=== PATIENT | female | born 1955 ===

== ENCOUNTER 2022-02-21 11:10 | Outpatient (CLI) | payer MEDICARE, SELFPAY ==
--- NOTE | ~2022-02-21 | XR_ITS ---
XR lumbar spine 2-3V 02/21/2022 11:31 Indication: Lumbar radiculopathy. Procedure: 3 views lumbar spine Comparison: No prior studies for comparison. Findings: There is disc narrowing at all lumbar levels. No fracture or traumatic malalignment. No roly dence for spondylolisthesis. There is advanced multilevel facet hypertrophy. Normal lumbar lordosis. Mild dextrocurvature of the lumbar spine. Sacral foramen are symmetric. Impression: 1: Moderate-severe lumbar spondylosis. Reviewed, dictated and finalized at location A. Impression: 1: Moderate-severe lumbar spondylosis.
== END 2022-02-21 11:11 | disposition home or self-care (01) ==
LOC: CHSIMG 11:17
PROVIDERS: PCP Physician Assistant; Visit Provider Physician Assistant
DX: M54.16 Radiculopathy, lumbar region (principal)
CPT/HCPCS: 72100

== ENCOUNTER 2022-03-12 09:46 | Outpatient (CLI) | payer MEDICARE, SELFPAY ==
--- NOTE | ~2022-03-12 | MR_ITS ---
EXAMINATION: MR lumbar spine wo con DATE: 03/12/2022 11:16 INDICATION: Lumbar spondylosis. Low back pain. TECHNIQUE: Magnetic resonance imaging (MRI) of the lumbar spine was performed without intravenous con trast. Sequences included sagittal T2-weighted FSE, sagittal T2-weighted FS FSE, sagittal T1-weighted FSE, and axial T2-weighted FSE. COMPARISON: Lumbar spine radiographs 06/24/2022 FINDINGS: There is 6 degrees dextrocurvature of lumbar spine. There is 3 mm retrolisthesis of L1 on L 2 and L2 on L3. There are Schmorl's nodes at most levels. There is moderately decreased disc height a t L1-L2 and L2-L3, mildly decreased disc height at L3-L4, and severely decreased disc height at L4-L5 with endplate remodeling. The distal spinal cord signal intensity is normal. The conus medullaris is at L1-L2. The following disc levels are specifically discussed: L1-L2: The disc is bulging. There is moderate bilateral facet joint osteoarthritis. There is mild suresh ateral neural foraminal stenosis. There is mild central canal stenosis. L2-L3: The disc is bulging and has an annular fissure. There is mild bilateral facet joint osteoarthr itis. There is mild bilateral neural foraminal stenosis. There is mild central canal stenosis. L3-L4: The disc is bulging and has an annular fissure. There is severe bilateral facet joint osteoart hritis. There is mild bilateral neural foraminal stenosis. There is mild central canal stenosis. L4-L5: The disc is bulging and has an annular fissure. There is moderate bilateral facet joint osteoa rthritis. There is moderate right and mild left neural foraminal stenosis. There is mild central anuj l stenosis. L5-S1: The disc is mildly bulging. There is severe bilateral facet joint osteoarthritis. There is mil d bilateral neural foraminal stenosis. There is mild central canal stenosis. IMPRESSION: 1. Severe lumbar spondylosis. Reviewed, dictated and finalized at location A.
== END 2022-03-12 09:47 | disposition home or self-care (01) ==
LOC: CHSIMG 09:47
PROVIDERS: PCP Physician Assistant; Visit Provider Physician Assistant
DX: M47.896 Other spondylosis, lumbar region (principal)
CPT/HCPCS: 72148

== ENCOUNTER 2023-06-17 09:33 | Outpatient (CLI) | payer MEDICARE, SELFPAY ==
[2023-06-17 10:10] LABS: Alanine Aminotransferase 104 U/L (14-59); Albumin Level 3.3 g/dL (3.4-5.0); Alkaline Phosphatase 131 U/L (46-116); Anion Gap 11 mmol/L (8-16); Aspartate Amino Transferase 31 U/L (15-37); Bilirubin,Total 0.2 mg/dL (0.00-1.00); Blood Urea Nitrogen 77 mg/dL (7-18); Calcium 8.6 mg/dL (8.5-10.1); Carbon Dioxide 22 mmol/L (21-32); Chloride 101 mmol/L (98-108); Estimated Glomerular Filt Rate 22; Glucose 86 mg/dL (70-99); Osmolality Calculated 300 mOsm/kg (285-295); Potassium 3.8 mmol/L (3.5-5.1); Sodium 134 mmol/L (136-145); Total Protein 6.4 g/dL (6.4-8.2)
== END 2023-06-17 09:34 | disposition home or self-care (01) ==
PROVIDERS: PCP Physician Assistant
DX: N17.9 Acute kidney failure, unspecified (principal)
CPT/HCPCS: 36415; 80053

== ENCOUNTER 2023-06-23 08:53 | Outpatient (CLI) | payer MEDICARE, SELFPAY ==
[2023-06-23 09:22] LABS: Alanine Aminotransferase 36 U/L (14-59); Albumin Level 3.4 g/dL (3.4-5.0); Alkaline Phosphatase 134 U/L (46-116); Anion Gap 5 mmol/L (8-16); Aspartate Amino Transferase 15 U/L (15-37); Bilirubin,Total 0.2 mg/dL (0.00-1.00); Blood Urea Nitrogen 18 mg/dL (7-18); Calcium 8.6 mg/dL (8.5-10.1); Carbon Dioxide 33 mmol/L (21-32); Chloride 101 mmol/L (98-108); Estimated Glomerular Filt Rate 46; Glucose 101 mg/dL (70-99); Osmolality Calculated 289 mOsm/kg (285-295); Potassium 3.5 mmol/L (3.5-5.1); Sodium 139 mmol/L (136-145); Total Protein 6.7 g/dL (6.4-8.2)
== END 2023-06-23 08:54 | disposition home or self-care (01) ==
LOC: CHSLAB 08:56
PROVIDERS: PCP Physician Assistant
DX: N17.9 Acute kidney failure, unspecified (principal)
CPT/HCPCS: 36415; 80053

== ENCOUNTER 2023-07-07 08:36 | Outpatient (CLI) | payer MEDICARE, SELFPAY ==
[2023-07-07 09:17] LABS: Alanine Aminotransferase 45 U/L (14-59); Albumin Level 3.6 g/dL (3.4-5.0); Alkaline Phosphatase 152 U/L (46-116); Anion Gap 8 mmol/L (8-16); Aspartate Amino Transferase 25 U/L (15-37); Bilirubin,Total 0.4 mg/dL (0.00-1.00); Blood Urea Nitrogen 17 mg/dL (7-18); Carbon Dioxide 28 mmol/L (21-32); Chloride 97 mmol/L (98-108); Estimated Glomerular Filt Rate 46; Glucose 131 mg/dL (70-99); Osmolality Calculated 279 mOsm/kg (285-295); Potassium 3.4 mmol/L (3.5-5.1); Sodium 133 mmol/L (136-145); Total Protein 7.2 g/dL (6.4-8.2)
== END 2023-07-07 08:37 | disposition home or self-care (01) ==
PROVIDERS: PCP Physician Assistant
DX: N17.9 Acute kidney failure, unspecified (principal)
CPT/HCPCS: 36415; 80053

== ENCOUNTER 2023-11-18 07:04 | Outpatient (CLI) | payer MEDICARE, SELFPAY ==
[2023-11-18 07:39] LABS: Alanine Aminotransferase 73 U/L (14-59); Albumin Level 3.4 g/dL (3.4-5.0); Alkaline Phosphatase 163 U/L (46-116); Anion Gap 12 mmol/L (4-12); Aspartate Amino Transferase 53 U/L (15-37); Bilirubin,Total 0.3 mg/dL (0.00-1.00); Blood Urea Nitrogen 23 mg/dL (7-18); Calcium 9.3 mg/dL (8.5-10.1); Carbon Dioxide 27 mmol/L (21-32); Chloride 105 mmol/L (98-108); Estimated Glomerular Filt Rate 36; Glucose 106 mg/dL (70-99); Osmolality Calculated 301 mOsm/kg (285-295); Potassium 4.1 mmol/L (3.5-5.1); Sodium 144 mmol/L (136-145); Total Protein 7.3 g/dL (6.4-8.2)
== END 2023-11-18 07:05 | disposition home or self-care (01) ==
LOC: CHSLAB 07:08
PROVIDERS: PCP Physician Assistant
DX: N17.9 Acute kidney failure, unspecified (principal)
CPT/HCPCS: 36415; 80053

== ENCOUNTER 2023-12-12 07:13 | Outpatient (CLI) | payer MEDICARE, SELFPAY ==
[2023-12-12 07:51] LABS: Alanine Aminotransferase 45 U/L (14-59); Albumin Level 3.5 g/dL (3.4-5.0); Alkaline Phosphatase 183 U/L (46-116); Aspartate Amino Transferase 30 U/L (15-37); Bilirubin Direct 0.1 mg/dL (0-0.2); Bilirubin,Total 0.3 mg/dL (0.00-1.00); Total Protein 7.7 g/dL (6.4-8.2)
== END 2023-12-12 07:14 | disposition home or self-care (01) ==
LOC: CHSLAB 07:16
PROVIDERS: PCP Physician Assistant
DX: C50.411 Malignant neoplasm of upper-outer quadrant of right female breast (principal); Z17.0 Estrogen receptor positive status [ER+]
CPT/HCPCS: 36415; 80076

== ENCOUNTER 2024-06-07 10:42 | Emergency (ER) | payer MEDICARE, SELFPAY ==
[2024-06-07] VITALS (7 sets, daily range): BP systolic 106–135; BP diastolic 63–77; PULSE 88–105; RESP 14–18; TEMP 36.4–36.7; O2SAT 98–100
--- NOTE | 2024-06-07 10:52 | ECG_ITS ---
Test Date: 2024-06-07 11:17:47 Measurements Intervals Hecker Rate: 102 P: 48 WY: 179 QRS: 6 QRSD: 89 T: 56 QT: 365 QTc: 477 Interpretive Statements SINUS TACHYCARDIA POSSIBLE ANTERIOR MYOCARDIAL INFARCTION , PROBABLY OLD BORDERLINE ST-T WAVE ABNORMALITY- HIGH LATERAL LEADS BASELINE ARTIFACT- III, AVF ABNORMAL ECG No previous ECG available for comparison Electronically Signed On 06-07-2024 11:53:40 BURN OUT SCARFING OPERATOR by Gee Shaffer D.O.
--- NOTE | 2024-06-07 10:55 | ED_ITS ---
HPI - Weakness General Chief complaint: Weakness Stated complaint: weakness Time Seen by Provider: 06/07/24 10:47 History of Present Illness HPI Narrative: Pt presents with generalized weakness for the last several days. Pt has breast cancer and is getting chemotherapy. Pt received treatment last week. Pt says she has had a few syncopal episodes after she gets up and moves around. She had an episode yesterday and twisted right knee. Pt says she had this happen after last round of chemo and got some IV fluids and felt better. Pt does not want to have left knee x ray at this time as she thinsk she just twisted it a bit. Pt denies CP or SOB or one sided weakness or numbness. Pt denies fever or cough or urinary sy,ptosm. Related Data Home Medications Medication Instructions Recorded Confirmed acetaminophen 300 mg-codeine 60 mg 1 tablet PO Q4-6H PRN Pain 06/07/24 06/07/24 tablet cephalexin 500 mg capsule 500 mg PO QID 06/07/24 06/07/24 Allergies Allergy/AdvReac Type Severity Reaction Status Date / Time No Known Allergies Allergy Mild Verified 06/07/24 12:50 Review of Systems Review of Systems: All systems reviewed & are unremarkable except as noted in HPI and below PMFSH Family History Family History (Updated 01/25/19 @ 10:28 by DOCTOR UNKNOWN) Father Family history of type 2 diabetes mellitus Other Diabetes mellitus Family history of arthritis Family history of cardiovascular disease Family history of malignant neoplasm Social History Social History Smoking status: Never smoker Alcohol intake: never Exam Const: General: healthy appearing and no acute distress Nutritional Appearance: well nourished Orientation/consciousness: patient oriented x3 Limitations: no limitations HENMT: Mouth: Yes dry mucous membranes Throat: posterior oropharynx normal Eyes: EOM: EOMs intact bilaterally Chest: Other: right breast firm and some erythematous (pt says is improved on antibiotics) Resp: Effort & Inspection: normal respiratory effort Auscultation: clear to auscultation bilaterally Cardio: Rate: regular rate Rhythm: regular rhythm GI: GI Palp: Yes Soft to palpation and No Tenderness to palpation present (GI) Auscultation: normal bowel sounds Skin: General skin exam: normal color Rashes: no rashes Wounds: no wounds Neuro: General: patient oriented x3, moves all extremities, no meningeal signs, no focal motor deficits and CN's II-XI intact bilaterally Cranial nerves: Yes Nystagmus not present Speech: normal speech Extrem: General: normal to inspection and no clubbing, cyanosis or edema Psych: Mental Status: mental status grossly normal Affect: normal affect Attitude: cooperative Course Vital Signs Vital signs: Vital Signs Temperature 97.5 F L 06/07/24 10:42 Pulse Rate 105 H 06/07/24 10:42 Respiratory Rate 16 06/07/24 10:42 Blood Pressure 115/70 06/07/24 10:42 Pulse Oximetry 99 06/07/24 10:42 Oxygen Delivery Room Air 06/07/24 10:42 Temperature 97.5 F L 06/07/24 10:42 Pulse Rate 88 06/07/24 12:30 Respiratory Rate 18 06/07/24 12:30 Blood Pressure 135/77 06/07/24 12:30 Pulse Oximetry 99 06/07/24 12:30 Oxygen Delivery Room Air 06/07/24 12:00 MDM - Weakness MDM Narrative Medical decision making narrative: Pt presents with generalized weakness and syncope after chemo for breast CA. Pt had similar reaction to chemo last time and improved after IV fluids. Pt could be anemic or have an electrolyte abnormality or an infection. will get labs and UA. Will get EKG to rule out arrythimia with the syncope. Will give a liter of NS. Pt feels better after fluids. Discussed with CAESAR Sweeney for her oncologist, discussed with treating doc and ok to go home. They will contact her to resume treatment Lab Data 06/07/24 11:09 06/07/24 11:09 Labs: Lab Results 06/07/24 Range/Units 11:09 WBC 6.7 (4.8-10.8) K/mm3 RBC 4.02 L (4.20-5.40) M/mm3 Hgb 10.6 L (11.7-13.8) g/dL Hct 32.6 L (35.0-42.0) % MCV 81.1 (78.0-102.0) fL MCH 26.4 L (27.0-31.0) pg MCHC 32.5 (32-36) g/dL RDW 15.9 H (11.6-14.4) % Plt Count 165 (150-420) K/mm3 MPV 8.6 L (9.2-11.8) fl Immature Gran % (Auto) 0.3 H (0.0-0.0) % Neut % (Auto) 79.6 H (50.0-70.0) % Lymph % (Auto) 11.9 L (18.0-42.0) % [place] % (Auto) 7.3 (2.0-11.0) % Eos % (Auto) 0.6 L (1.0-6.0) % Baso % (Auto) 0.3 (0.0-1.0) % Lymph # (Auto) 0.80 L (1.10-4.50) K/mm3 [place] # (Auto) 0.49 (0.10-0.90) K/mm3 Eos # (Auto) 0.04 (0.02-0.50) K/mm3 Baso # (Auto) 0.02 (0.00-0.10) K/mm3 Abs Immat Gran (auto) 0.02 H (0.00-0.00) K/mm3 Absolute Neuts (auto) 5.34 (1.70-7.20) K/mm3 Absolute Nucleated RBC 0.00 (0.00-0.00) K/mm3 Nucleated RBC % 0.0 (0-0.0) % Sodium 133 L (137-145) mmol/L Potassium 3.3 L (3.4-5.0) mmol/L Chloride 100 (98-107) mmol/L Carbon Dioxide 26 (22-30) mmol/L Anion Gap 7 (4-12) mmol/L BUN 25 H (7-17) mg/dL Creatinine 0.90 (0.7-1.0) mg/dL Estim Creat Clear Calc 46 ml/min Estimated GFR > 60 (59 - ) Glucose 113 H (65-110) mg/dL Calculated Osmolality 281 L (285-295) mOsm/kg Calcium 9.3 (8.4-10.2) mg/dL Magnesium 1.5 L (1.6-2.3) mg/dL Total Bilirubin 1.0 (0.2-1.3) mg/dL AST 39 H (14-36) U/L ALT 20 (6-35) U/L Alkaline Phosphatase 159 H (38-126) U/L Total Protein 8.0 (6.3-8.2) g/dL Albumin 3.8 (3.5-5.1) g/dL ECG Data EKG #1: Interpretation: sinus tach rate [address] or t wave changes Discharge Plan Discharge Clinical Impression: Syncope, Weakness Patient Disposition: Home, Self-Care Condition: Improved Instructions: Antibiotic Form, Syncope (DC), Weakness (ED) Additional Instructions: oncology will call to arrange next treatment Prescriptions: No Action cephalexin 500 mg capsule 500 mg PO QID acetaminophen-codeine 300-60 mg tablet 1 tablet PO Q4-6H PRN (Reason: Pain) Follow-up/Referrals: Jazzy,SILVIA Ashraf [Primary Care Provider] -
[2024-06-07] MEDS: SODIUM CHLORIDE 0.9% IV 1,000 ML 999 ML IV CONT (11:11)
[2024-06-07 11:13] LABS: Basophils Absolute Auto 0.02 K/mm3 (0.00-0.10); Basophils Percent Auto 0.3 % (0.0-1.0); Eosinophils Absolute Auto 0.04 K/mm3 (0.02-0.50); Eosinophils Percent Auto 0.6 % (1.0-6.0); Hematocrit 32.6 % (35.0-42.0); Hemoglobin 10.6 g/dL (11.7-13.8); Immature Granulocyte Absolute 0.02 K/mm3 (0.00-0.00); Immature Granulocyte Percent A 0.3 % (0.0-0.0); Lymphocytes Percent Auto 11.9 % (18.0-42.0); Mean Corpuscular HGB Conc 32.5 g/dL (32-36); Mean Corpuscular Hemoglobin 26.4 pg (27.0-31.0); Mean Corpuscular Volume 81.1 fL (78.0-102.0); Mean Platelet Volume 8.6 fl (9.2-11.8); Monocytes Absolute Auto 0.49 K/mm3 (0.10-0.90); Monocytes Percent Auto 7.3 % (2.0-11.0); Neutrophils Absolute Auto 5.34 K/mm3 (1.70-7.20); Neutrophils Percent Auto 79.6 % (50.0-70.0); Platelet Count Result 165 K/mm3 (150-420); Red Blood Count 4.02 M/mm3 (4.20-5.40); Red Cell Distribution Width 15.9 % (11.6-14.4); White Blood Count 6.7 K/mm3 (4.8-10.8)
--- NOTE | 2024-06-07 12:41 | PC.NURSE ---
pt is eating lunch at this time. ivf infusing as ordered without difficulty. family has left for a while and will return. lab work has been sent to [place] due to machine issue with lab. pt is aware. pt denies any needs or complaints. will continue to monitor.
[2024-06-07 12:51] LABS: Alanine Aminotransferase 20 U/L (6-35); Albumin Level 3.8 g/dL (3.5-5.1); Alkaline Phosphatase 159 U/L (38-126); Anion Gap 7 mmol/L (4-12); Aspartate Amino Transferase 39 U/L (14-36); Blood Urea Nitrogen 25 mg/dL (7-17); Calcium 9.3 mg/dL (8.4-10.2); Carbon Dioxide 26 mmol/L (22-30); Chloride 100 mmol/L (98-107); Estimated CRCL calculation 46 ml/min; Estimated Glomerular Filt Rate > 60; Glucose 113 mg/dL (65-110); Magnesium 1.5 mg/dL (1.6-2.3); Osmolality Calculated 281 mOsm/kg (285-295); Potassium 3.3 mmol/L (3.4-5.0); Sodium 133 mmol/L (137-145)
--- NOTE | 2024-06-07 13:15 | PC.NURSE ---
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 SON TO TRANSPORT.
[2024-06-07] MEDS: HEPARIN SODIUM LOCK FLUSH 500 UNITS/5 ML SYRINGE (13:34)
== END 2024-06-07 13:40 | disposition home or self-care (01) ==
PROVIDERS: Emergency Provider Emergency Medicine; PCP Physician Assistant
DX: R55 Syncope and collapse (principal); R53.1 Weakness; C50.919 Malignant neoplasm of unspecified site of unspecified female breast
CPT/HCPCS: 36415; 80053; 83735; 85025; 93005; 96360; 96361; 99283; J7030

== ENCOUNTER 2025-04-07 08:10 | Outpatient (CLI) | payer MEDICARE, SELFPAY ==
--- OUTSIDE RECORDS SUMMARY | 2025-04-07 08:37 | XMS_ITS | Encounter Summary ---
Author Organization [facility] Healthcare Address [address] [place] [address] Care Team Providers Care Rubber Stamp Die Inspector Name Role Phone Prema Yates MD Unavailable [phone] Shorty Orellana MD Unavailable [phone] Re Echols MD Unavailable [phone] Awa Cueva MD Unavailable [phone] Ravi Purcell Primary Care Provider [phone] Jenna Hernández MD Unavailable [phone] [facility] PhD Unavailable [phone] Encounter Details Date Type Department Care Team (Late st Contact Info) Description 03/08/2024 Treatment [facility] [place] [address] Re Echols MD [address] [place] [id number] Social History Tobacco Use Types Packs/Day Years Used Date Smoking Tobacco: Never Passive Smoke Exposure: Never Social Connection and Isolation Panel Answer Date Recorded In a typical week, how many times do you talk on the phone with family, friends, or neighbors? More than three times a week 05/29/2023 How often do you get togethe r with friends or relatives? More than three times a week 05/29/2023 How often do you attend chur ch or episcopal services? Never 05/29/2023 Do you belong to any clubs o r organizations such as jain groups, unions, fraternal or athletic groups, or school groups? No 05/29/2023 How often do you attend meet ings of the clubs or organizations you belong to? Never 05/29/2023 Are you , , di vorced, , never , or living with a partner? Never 05/29/2023 AUDIT-C Answer Date Recorded Q1: How often do you have a drink containing alcohol? Never 09/30/2023 Q2: How many drinks containi ng alcohol do you have on a typical day when you are drinking? Patient does not drink Q3: How often do you have si x or more drinks on one occasion? Never 09/30/2023 Overall Financial Resource Strain (CARDIA) Answe r Date Recorded How hard is it for you to pa y for the very basics like food, housing, medical care, and heating? Not hard at all 05/29/2023 Hunger Vital Sign Answer Date Recorded Within the past 12 months, y ou worried that your food would run out before you got the money to buy more. Never true 05/29/20 23 Within the past 12 months, t he food you bought just didn't last and you didn't have money to get more. Never true 05/29/2023 PRAPARE - Transportation Answer Date Re corded In the past 12 months, has l ack of transportation kept you from medical appointments or from getting medications? No 08/2022 In the past 12 months, has l ack of transportation kept you from meetings, work, or from getting things needed for daily living? No 05/29/2023 Housing Stability Vital Sign Answer Choco e Recorded In the last 12 months, was t here a time when you were not able to pay the mortgage or rent on time? No 05/29/2023 Number of Places Lived in the Last Year Not on f ile 05/29/2023 In the last 12 months, was t here a time when you did not have a steady place to sleep or slept in a snf (including now)? No 05/29/2023 Personal Safety Answer Date Recorded Have you ever been in or are you currently in a harmful physical or emotional relationship or is someone making you feel afraid or unsafe? 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 Gender Identity Not on file Sexual Orientation Not on file Occupation Industry Job Start Date Job End Date Part-time [employer] Not on file Not on file Not o n file documented as of this encounter Plan of Treatment Not on file documented as of this encounter Visit Diagnoses Not on filedocumented in this encounter Care Teams Rubber Stamp Die Inspector Relationship Specialty Start Date End Date Ravi Purcell PA [address] [place] [address] PCP - General Family Practice 08/26/23 Prema Yates MD [address] [facility] [address] [place] [address] Consulting Physician Obstetrics and Gynecology 02/26/23 Shorty Orellana MD [address] [facility] [place] [address] Consulting Physician Radiation Oncology 04/14/23 Re Echols MD [address] [place] [address] Medical Oncologist/Assistant Men'S Soccer Coach Medical Oncology 04/14/23 Awa Cueva MD [address] [facility] [address] [place] [address] Consulting Physician Surgical Oncology 04/25/23 Jenna Hernández MD [address] [place] [address] Consulting Physician Plastic Surgery 09/23/23 Mio Walsh MD PhD [address] [place] [address] Radiation Oncologist Radiation Oncology 12/05/23 documented as of this encounter
--- OUTSIDE RECORDS SUMMARY | 2025-04-07 08:37 | XMS_ITS | Clinical Summary ---
Author Organization [facility] Building [address] Address [address] [place] [address] Care Team Providers Care Area Secretary Name Role Phone Prema Yates MD Unavailable [phone] Shorty Orellana MD Unavailable [phone] Re Echlos MD Unavailable [phone] Awa Cueva MD Unavailable [phone] Ravi Purcell Primary Care Provider [phone] Jenna Hernández MD Unavailable [phone] [facility] PhD Unavailable [phone] Allergies No known active allergies Medications escitalopram (LEXAPRO) 10 mg tablet Take 1 tablet (10 mg total) by mouth every morning Active rOPINIRole (REQUIP) 0.5 mg tablet Take 1 tablet (0.5 mg total) by mouth 3 (three) times a day Active ferrous sulfate ER 324 mg (65 mg iron) EC tabletIndicatio ns:Iron Deficiency Anemia Take 65 mg by mouth every other day Active acetaminophen-c odeine (TYLENOL with CODEINE #4) 300-60 mg per tablet Take 1 tablet by mouth every 6 (six) hours as needed for pain 0 5 Active letrozole (FEMARA) 2.5 mg tablet Take 1 tablet (2.5 mg total) by mouth every morning Active buPROPion SR (WELLBUTRIN SR) 150 mg 12 hr tablet Take 1 tablet (150 mg total) by mouth 2 (two) times a day Active traMADoL (ULTRAM) 50 mg tablet Take 1 tablet (50 mg total) by mouth every 6 (six) hours as needed for pain for up to 7 doses 7 tablet 5 03/31/20 Discontinu ed(Therapy completed) Active Problems Problem Noted Date Diagnosed Date Lymphedema 10/17/2023 Abnormal posture 10/17/2023 Fibrosis of skin 10/17/2023 S/P bilateral mastectomy 10/07/2023 History of lymph node dissection of right axilla 10/07/2023 Restless leg 10/01/2023 Difficulty hearing 10/01/2023 Back pain 10/01/2023 Anxiety 10/01/2023 GERD (gastroesophageal reflux disease) 4 Anemia 10/01/2023 Mild protein-calorie malnutrition 05/29/2023 Acute renal failure 05/28/2023 Increased anion gap metabolic acidosis 3 Hyperkalemia 05/28/2023 Hyponatremia 05/28/2023 Nausea and vomiting 05/28/2023 Malignant neoplasm of upper- outer quadrant of right breast in female, estrogen receptor positive 04/08/2023 Cancer Staging:Clinical stage from 04/08/2023:Stage IIIA(cT4b, cN2(f), cM0, G2, ER+, MA+, HER2+) - Signed by Nina Simmons NP on 06/23/2023 Pathologic stage from 10/07/2023: ypT3, pN2a, cM0, GX, ER+, MA+, HER2+ - Signed by Shorty Orellana MD on 10/20/2023 Encounter for screening colonoscopy 10/01/2021 Overview (10/01/2021): Added automatically from request for surgery [id number] Encounters Date Type Department Care Team Description 04/04/2025 Results Follow-Up [facility] [address] [place] [address] Harry Carter MD Liver Elastography w/o Imaging W/I&R -[facility] (All Locations) 03/31/2025 3:30 PM CDT Procedure visit [facility] [address] [place] [address] Abnormal finding on imaging of liver 03/31/2025 3:30 PM CDT Office Visit [facility] [address] [place] [address] Harry Carter MD Other cirrhosis of liver (Primary Dx); Abnormal finding on imaging of liver; Need for hepatitis B screening test; Hepatic cirrhosis, unspecified hepatic cirrhosis type, unspecified whether ascites present (HCC) 03/31/2025 11:45 AM CDT Office Visit [facility] [address] [place] [phone] Re Echols MD Malignant neoplasm of upper-outer quadrant of right breast in female, estrogen receptor positive (HCC) (Primary Dx) 01/07/2025 Orders Only [facility] Center [address] [place] [phone] Re Echols MD SOS (sinusoidal obstruction syndrome) (Primary Dx) from Last 3 Months Immunizations Immunization Administration Dates Next Due ZOSTER Recombinant 09/11/2018,04/21/2018 Surgical History Surgery Date Site/Laterality Comments APPENDECTOMY BUNIONECTOMY Bilateral BREAST BIOPSY 04/08/2023 Right US GUIDED BIOPSY LYMPH NODE SUPERFICIAL LEFT 04/08/2023 N/A TRANSUMBILICAL AUGMENTATION MAMMAPLASTY 07/28/2003 - 07/27/2004 Bilateral CARPAL TUNNEL RELEASE Bilateral BREAST BIOPSY 05/08/2023 Left PORT PLACEMENT CHEST >5 YEARS 05/13/2023 N/A Medical History Medical History Date Comments Restless leg Difficulty hearing Anxiety GERD (gastroesophageal reflux disease) Anemia Breast cancer (HCC) 2022 History of breast cancer Family History Medical History Relation Name Comments Prostate cancer Father Breast cancer Mother Lung cancer Mother Breast cancer Mother's Sister Relation Name Status Comments Father Mother Mother's Sister Social History Tobacco Use Types Packs/Day Years Used Date Smoking Tobacco: Never Passive Smoke Exposure: Never Tobacco Cessation:Counseling Given: Not Answered Social Connection and Isolation Panel Answer Date Recorded In a typical week, how many times do you talk on the phone with family, friends, or neighbors? More than three times a week 05/29/2023 How often do you get togethe r with friends or relatives? More than three times a week 05/29/2023 How often do you attend chur ch or samaritan services? Never 05/29/2023 Do you belong to any clubs o r organizations such as religion groups, unions, fraternal or athletic groups, or school groups? No 05/29/2023 How often do you attend meet ings of the clubs or organizations you belong to? Never 05/29/2023 Are you , , di vorced, , never , or living with a partner? Never 05/29/2023 Overall Financial Resource Strain (CARDIA) Answe r [...] place to sleep or slept in a [place] facility (including now)? No 05/29/2023 AUDIT-C Answer Date Recorded Q1: How often do you have a drink containing alc ohol? Never 03/31/2025 Average Number of Drinks Not on file 025 Frequency of Binge Drinking Not on file 10/2024 Personal Safety Answer Date Recorded Have you ever been in or are you currently in a harmful physical or emotional relationship or is someone making you feel afraid or unsafe? 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 Gender Identity Not on file Sexual Orientation Not on file Occupation Industry Job Start Date Job End Date Part-time [employer] Not on file Not on file Not o n file Obstetrics History Last Filed Vital Signs Vital Sign Reading Time Taken Comments Blood Pressure 121/71 03/31/2025 3:36 PM CDT Pulse 72 03/31/2025 3:36 PM CDT Temperature 36.5 C (97.7 F) 03/31/2025 11:43 AM CDT Respiratory Rate 18 03/31/2025 11:43 AM CDT Oxygen Saturation 97% 03/31/2025 3:36 PM CDT Inhaled Oxygen Concentration - - Weight 69.7 kg (153 lb 9.6 oz) 03/31/2025 3:36 P M CDT Height 162.6 cm (5' 4) 03/31/2025 3:36 PM CDT Body Mass Index 26.37 03/31/2025 3:36 PM CDT Plan of Treatment Health Maintenance Due Date Last Done Comments Depression Screening 1955 Hepatitis C Screening 1955 DTaP/Tdap/Td Vaccine (1 - Tdap) 1967 Hepatitis B Screening 1974 Pneumococcal vaccine 65+ (1 of 2 - PCV) 1975 Well Visit 65+ 2021 Breast Cancer Screening-Mammogram 03/25/2024 023 Influenza Vaccine (#1) 2025 Fall Risk Assessment 11/23/2025 11/23/2024, 09/24/2024, 09/03/2024, Additional history exists Osteoporosis Screening-Bone Density Scan 01/26/2026 01/27/2024 Colon Cancer Screening-Colonoscopy 11/14/20312021 Zoster Vaccine Completed 09/11/2018, 04/21/2018 Medical Devices Implanted Type Area Night Coordinator Device Identifier Shelf Expiration Date Model / Serial / Lot [employer] Matrix Tissue Alloderm Restore Lg Perforated Thk 1.6 0.4mm [id number] - [id number] Implanted:Qty : 1 on 10/07/2023 by Jenna Hernández MD at [facility] Other - see comments Right: Breast [employer] [id number] 11/24/2024 [id number] / / [id number] Description:Used to replace damaged tissue [employer] Matrix Tissue Alloderm Restore Lg Perforated Thk 1.6 0.4mm [id number] - [id number] Implanted:Qty : 1 on 10/07/2023 by Jenna Hernández MD at [facility] Other - see comments Left: Breast [employer] [id number] 08/27/2025 [id number] / / [id number] Description:Used to replace damaged tissue [employer] Senomark Ultracor Bard 14ga 10cm Rigid Needle 1 Microfiber Pad [id number] - [id number] Implanted:Qty : 1 on 04/08/2023 at [facility] [employer] [id number] / / [employer] Marker Breast Ring Shape Radiopaque Nitinol Ultracor Twirl [id number] Uctw17 - [id number] Implanted:Qty : 1 on 04/08/2023 at [facility] [employer] [id number] [facility]17 / / [employer] Mammomark Cormark Tissue Bowtie Marker Breast Biopsy Collagen [id number] - [id number] Implanted:Qty : 1 on 05/08/2023 at [facility] [employer] [id number] 08/16/2024 [id number] / / [id number] 3D Angio Dynamics Excela Low Porfile Power Port 8fr 1.6mm 1 Lumen [id number] - [id number] Implanted:Qty : 1 on 05/13/2023 at [facility] Ang[employer] 09/22/2027 [id number] Explanted Type Area Night Coordinator Device Identifier Shelf Expiration Date Model / Serial / Lot [employer] Implant Mammary Natrelle Te Smooth With Fourte 826a-Cc-07-T - [id number] - [id number] Implanted:Qty: 1 on 10/07/2023 by Jenna Hernández MD at [facility] Explanted:12/2023 (Quantity not on file) Breast Right: Breast [employer] [id number] 02/18/2025 133S-MX-1 2-T / [id number] / Description:150cc Instilled [employer] Implant Mammary Natrelle Te Smooth With Fourte [id number]-Kg-58-[id number] - [id number] - [id number] Implanted:Qty: 1 on 10/07/2023 by Jenna Hernández MD at [facility] Explanted:Qty: 1 on 11/23/2024 by Jenna Hernández MD at [facility] Breast Left: Breast [employer] [id number] 04/05/2024 133S-MX-1 2-T / [id number] / Description:150 cc Instilled DO NOT perform diagnostic testing with Magnetic Resonance Imaging (MRI) in patients with NATRELLE 133S or NATRELLE 133 Plus Tissue Expanders in place. [email or web address] Procedures Procedure Name Priority Date/Time Associated Diagnosis Comments LIVER ELASTOGRAPHY W/O IMAGING W/I&R Routine 03/31/2025 3:30 PM CDT Abnormal finding on imaging of liver DEXA AXIAL SKELETON BONE DENSITY 1 OR MORE SITES Schedule Routine, Read Routine (OP Routine) 01/27/2024 2:35 PM CDT Malignant neoplasm of upper-outer quadrant of right breast in female, estrogen receptor positive (HCC) DIAGNOSTIC MAMMOGRAM BILATERAL W MICHAEL W IMPLANTS Schedule Routine, Read Routine (OP Routine) 03/25/2023 12:13 PM CDT Mass of lower outer quadrant of right breast Lump of axillary tail of right breast COLONOSCOPY 11/13/2021 12:59 PM CDT from Last 3 Months or Most Recently Relevant to Health Maintenance Results * Liver Elastography w/o Imaging W/I&R -[facility] (All Locations) (03/31/2025 3:30 PMCDT) Anatomical Region Laterality Modality Other us Harry Carter MD GI PROCEDURE ORDERABLES Final Result * Dexa Axial Skeleton Bone Density 1 or 2 Site (01/27/2024 2:35 PM CDT) Anatomical Region Laterality Modality Body N/A Digital Radiogra phy 01/27/2024 2:44 PM CDT Impressions 01/27/2024 2:44 PM CDT BMD near the young adult mean. Based on BMD alone, there is no increased risk of fragility fracture. If followup is to be done, for technical reasons, it should be performed on this same machine. Electronically signed by: Jan Munoz M.D. Narrative 01/27/2024 2:44 PM CDT EXAM: Bone mineral density examination HISTORY: Postmenopausal female. DXA BMD was done at [facility] on a Hologic Horizon W. Precision testing at this site has resulted in a least significant change of: Lumbar spine:0.028 g/sq cm2 Total Hip: 0.031 g/sq cm2 Femoral neck: 0.034 g/sq cm2 BMD L1-L4 is 1.174 g/sq cm corresponding to a T score of 1.2. BMD left femoral neck is 0.856 g/sq cm corresponding to a T score of 0.1. BMD total left hip is 1.015 g/sq cm corresponding to a T score of 0.6. The 10-year fracture risk for major osteoporotic fracture: 6.9% The 10-year fracture risk for hip fracture: 0.3% COMPARISON: None. Procedure Note Jan Munoz MD - 01/27/2024 EXAM: Bone mineral density examination HISTORY: Postmenopausal female. DXA BMD was done at [facility] on a Hologic Horizon W. Precision testing at this site has resulted in a least significant change of: Lumbar spine:0.028 g/sq cm2 Total Hip: 0.031 g/sq cm2 Femoral neck: 0.034 g/sq cm2 BMD L1-L4 is 1.174 g/sq cm corresponding to a T score of 1.2. BMD left femoral neck is 0.856 g/sq cm corresponding to a T score of 0.1. BMD total left hip is 1.015 g/sq cm corresponding to a T score of 0.6. The 10-year fracture risk for major osteoporotic fracture: 6.9% The 10-year fracture risk for hip fracture: 0.3% COMPARISON: None. IMPRESSION: BMD near the young adult mean. Based on BMD alone, there is no increased risk of fragility fracture. If followup is to be done, for technical reasons, it should be performed on this same machine. Electronically signed by: Jan Munoz M.D. Re Echols MD IM DXA PROCEDURES Final Result * (ABNORMAL) Diagnostic Mammogram Bilateral W Michael W Implants (03/25/2023 12:13 PM CDT) Anatomical Region Laterality Modality Breast Bilateral Mammography 03/25/2023 1:11 PM CDT Impressions 03/25/2023 1:11 PM CDT 1. Large mass in the anterior right breast involving the medial and lateral breast as well as the superior and inferior breast and extending to the nipple with nipple retraction. This is highly suspicious for malignancy. Multiple enlarged right axillary lymph nodes suspicious for metastatic disease. Recommend biopsy of the right breast mass and right axillary suspicious lymph nodes. These findings were discussed with the patient and all her questions were answered. The patient will meet with our nurse who will facilitate further management. Management of any palpable abnormality should be based on clinical grounds. 2. Left axillary lymph nodes are likely related to silicone deposits. This is benign. 3. ACR BI-RADS Category 5: Highly Suggestive of Malignancy - Appropriate Action Should Be Taken Electronically signed by: Carlota Walker M.D. Narrative 03/25/2023 1:11 PM CDT EXAM: US BREAST RIGHT COMPLETE, DIAGNOSTIC MAMMOGRAM BILATERAL W MICHAEL W IMPLANTS, US AXILLARY LEFT CLINICAL HISTORY: Right painful lump 6 months ago near the 7 o'clock position. Palpable axillary lump on the right, nipple and skin retraction. The patient states that her right breast has been feeling continuously harder over time. TECHNIQUE: Bilateral full-field digital diagnostic mammography with computer aided detection. 3-D tomosynthesis imaging performed. COMPARISON: None FINDINGS: The breasts are heterogeneously dense, which may obscure small masses. Right breast: There is a mass in the central anterior right breast. It measures approximately 8.5 cm in mediolateral dimension by approximately 8.5 cm in craniocaudal dimension. Anterior posterior dimension is approximately 2 cm. It extends to the nipple and there is nipple retraction also present. There are multiple enlarged dense lymph nodes in the axilla. Right breast implant. Left breast: Left breast implant. No suspicious microcalcifications masses or areas of architectural distortion. There are small intramammary lymph nodes in the upper outer quadrant. There is a dense lymph node in the left axilla. Right breast ultrasound: Ultrasound was performed of the right breast. There is a shadowing large heterogeneous mass in the anterior breast and extending into all 4 quadrants.. The mass involves the subareolar region. There is also overlying skin dimpling and a tiny ulceration at approximately 8:00. Images were also obtained of the right axilla. There are multiple enlarged abnormal-appearing lymph nodes. For example, one measures 2.5 x 2.3 cm x 3.4 cm. Left breast ultrasound: Focused ultrasound was performed of the left axilla. There is echogenic material in the left axillary lymph nodes which is most consistent with silicone. us Prema Yates MD IMG MAMMO PROCEDURES Final Res ult * COLONOSCOPY (11/13/2021 12:59 PM CDT) Anatomical Region Laterality Modality Other Narrative Procedure Note Luzma Zamora MD - 11/13/2021 12:59 PM CDT [facility] Patient Name: Lexis Diaz Procedure Date: 11/13/2021 12:59 PM Date of : 1955 Admit Type: Outpatient Age: 66 Gender: Female Attending MD: Luzma Zamora M.D. 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 No family history of colon cancer. Screening colonoscopy. Procedure: Colonoscopy Indications: Screening for colorectal malignant neoplasm, Thisis the patient's first colonoscopy Referring MD: SILVIA Meeks Providers: Luzma Zamora M.D. Impression: - One 3 mm polyp in the cecum, removed with a jumbo cold forceps. Resected and retrieved. - Diverticulosis in the sigmoid colon. - Internal hemorrhoids. Recommendation: - Await pathology results. - Repeat colonoscopy in 5-10 years for screening purposes. - Continue present medications. Medicines: Monitored Anesthesia Care Complications: No immediate complications. Estimated Blood Loss: Estimated blood loss: none. Procedure: Pre-Anesthesia Assessment: - Prior to the procedure, a History and Physicalwas performed, and patient medications and allergieswere reviewed. The patient's tolerance of previous anesthesia was also reviewed. The risks andbenefits of the procedure and the sedation options and risks were discussed with the patient. All questions were answered, and informed consent was obtained. Prior Anticoagulants: The patient has taken noanticoagulant or antiplatelet agents. ASA Grade Assessment: II -A patient with mild systemic disease. After reviewing the risks and benefits, the patient was deemed in satisfactory condition to undergo the procedure. The benefits, risks and alternatives of theprocedure and sedation were discussed and informed consentwas obtained. All questions were answered. Please referto the signed informed consent document in the medical record. The bowel preparation used was Miralax and bisacodyl tablets via split dose instruction. The scope was passed under direct vision. The Pediatric Colonoscope [id number] was introducedthrough the anus and advanced to the the cecum, identifiedby appendiceal orifice and ileocecal valve. Thequality of the bowel preparation was good. Bowel prep was administered using a split dose. Findings: The perianal and digital rectal examinations were normal. The appendiceal orifice was normal. A 3 mm polyp was found in the cecum. The polyp was sessile. The polyp was removed with a jumbo cold forceps. Resection and retrieval were complete. The descending colon, transverse colon and ascending colon appeared normal. Multiple small-mouthed diverticula were found in the sigmoid colon. Internal hemorrhoids were found during retroflexion. The hemorrhoids were small. Electronically signed by Luzma Zamora M.D. Luzma Zamora M.D. 11/13/2021 1:59:39 PM Number of Addenda: 0 Note Initiated On: 11/13/2021 12:59 PM Procedure Code(s): --- Professional --- 80079, Colonoscopy, flexible; with biopsy, single or multiple Diagnosis Code(s): --- Professional --- Z12.11, Encounter for screening for malignant neoplasm of colon K64.8, Other hemorrhoids D12.0, Benign neoplasm of cecum K57.30, Diverticulosis of large intestine without perforation orabscess without bleeding CPT copyright 2020 [employer]. All rights reserved. The codes documented in this report are preliminary and upon coder operator reviewmay be revised to meet current compliance requirements. Recognized by the [place] [employer] for promoting quality in endoscopy Luzma Zamora MD ENDOSCOPY PROCEDURES Edite d Result - Final from Last 3 Months or Most Recently Relevant to Health Maintenance Insurance MEDICARE [facility] MEDICARE Address: [place] [address] MEDICARE [facility] MEDICARE Address: [place] [address] MEDICARE [facility] MEDICARE Address: [address] [address] [place] [address] [facility] MEDICARE [facility] MEDICARE Address: [address] [address] [place] [address] Advance Directives For more information, please contact: [phone] * Full Code (Latest Code Status on File) Date Activated Date Inactivated Comments 10/07/2023 6:20 PM 10/08/2023 7:41 PM * Full Code Date Activated Date Inactivated Comments 05/28/2023 9:28 PM 06/01/2023 5:02 PM * Full Code Date Activated Date Inactivated Comments 11/13/2021 1:31 PM 11/13/2021 7:03 PM * Full Code Date Activated Date Inactivated Comments 11/13/2021 1:31 PM 11/13/2021 1:31 PM Care Teams Area Secretary Relationship Specialty Start Date End Date Ravi Purcell PA [address] [place] [address] PCP - General Family Practice 08/26/23 Prema Yates MD [address] [facility] [address] [place] [address] Consulting Physician Obstetrics and Gynecology 02/26/23 Shorty Orellana MD [address] [facility] [place] [address] Consulting Physician Radiation Oncology 04/14/23 Re Echols MD [address] [place] [address] Medical Oncologist/Fsr Medical Oncology 04/14/23 Awa Cueva MD [address] [facility] [address] [place] [address] Consulting Physician Surgical Oncology 04/25/23 Jenna Hernández MD [address] [place] [address] Consulting Physician Plastic Surgery 09/23/23 Mio Walsh MD PhD [address] [place] [address] Radiation Oncologist Radiation Oncology 12/05/23
--- OUTSIDE RECORDS SUMMARY | 2025-04-07 08:37 | XMS_ITS | Encounter Summary ---
Author Organization [facility] Address [address] [place] [address] Phone Care Team Providers Care Mapping Pilot Name Role Phone Prema Yates MD Unavailable [phone] Shorty Orellana MD Unavailable [phone] Re Echols MD Unavailable [phone] Awa Cueva MD Unavailable [phone] Ravi Purclel Primary Care Provider [phone] Jenna Hernández MD Unavailable [phone] Mio francisco MD PhD Unavailable [phone] Encounter Details Date Type Department Care Team (Latest Contact Info) Description 04/04/2025 Results Follow-Up [facility] Medicine Gastroenterology [address] [facility] 2nd Floor [address] [place] [address] Harry Carter MD [address] [place] [address] Liver Elastography w/o Imaging [facility] -[facility] (All Locations) Social History Tobacco Use Types Packs/Day Years [...] often do you attend chur ch or advent services? Never 05/29/2023 Do you belong to any clubs o r organizations such as samaritan groups, unions, fraternal or athletic groups, or [...] place to sleep or slept in a longterm (including now)? No 05/29/2023 AUDIT-C Answer Date [...] on file Legal Sex Female 8:28 PM [employer] Gender Identity Not on file Sexual Orientation Not on file Occupation Industry Job Start Date Job End Date Part-time [employer] Not on file Not on file Not o n file documented as of this encounter Plan of Treatment Not on file documented as of this encounter Visit Diagnoses Not on filedocumented in this encounter Care Teams Mapping Pilot Relationship Specialty Start Date End Date Ravi Purcell PA [address] [place] [address] PCP - General Family Practice 08/26/23 Prema Yates MD [address] [facility] [address] [place] [address] Consulting Physician Obstetrics and Gynecology 02/26/23 Shorty Orellana MD [address] [facility] DE[facility] RADIATION ONCOLOGY [place], [place] [id number] Consulting Physician Radiation Oncology 04/14/23 Re Echols MD [address] [place] [address] Medical Oncologist/Airbrush Artist Technical Medical Oncology 04/14/23 Awa Cueva MD [address] [facility] [address] [place] [address] Consulting Physician Surgical Oncology 04/25/23 Jenna Hernández MD [address] [place] [address] Consulting Physician Plastic Surgery 09/23/23 Mio Walsh MD PhD [address] [place] [address] Radiation Oncologist Radiation Oncology 12/05/23 documented as of this encounter
--- OUTSIDE RECORDS SUMMARY | 2025-04-07 08:37 | XMS_ITS ---
Author Organization [facility] Building [address] Address [address] [place] [address] Care Team Providers Care Director Revenue Name Role Phone Prema Yates MD Unavailable [phone] Shorty Orellana MD Unavailable [phone] Re Echols MD Unavailable [phone] Awa Cueva MD Unavailable [phone] Ravi Purcell Primary Care Provider Jenna Hernández MD Unavailable [phone] Mio Walsh MD PhD Unavailable Active Problems Problem Noted Date Diagnosed Date [...] from 04/08/2023:Stage IIIA(cT4b, cN2(f), cM0, G2, ER+, LA+, HER2+) - Signed by Nina Simmons NP on 06/23/2023 Pathologic stage from 10/07/2023: ypT3, pN2a, cM0, GX, ER+, LA+, HER2+ - Signed by Shorty Orellana MD on 10/20/2023 Encounter for screening colonoscopy 10/01/2021 Overview (10/01/2021): Added automatically from request for surgery [id number] Current Treatment and Therapy Plans IV Maintenance Therapy Plan w/ carrier fluids* Plan Start Date:05/28/2023 Plan Provider:Re Echols MD Linked Problems Malignant neoplasm of upper- outer quadrant of right breast in female, estrogen receptor positive (HCC) Treatment Medications No medications scheduled. [facility] - [id number] - Ado-trastuzumab emtansine (T-DM1) + Tucatinib/placebo* Plan Start Date:11/10/2023 Plan Provider:Re Echols MD Linked Problems Malignant neoplasm of upper- outer quadrant of right breast in female, estrogen receptor positive (HCC) Treatment Medications ado-trastuzumab emtansine (K ADCYLA)ado-trastuzumab emtansine (KADCYLA) IVPBINV-[facility] Tucatinib/Placebo ([id number]) Past Treatment and Therapy Plans Oncology Chemotherapy Treatment Plan Name Start Date Discontinue Date Treatment Medications Discontinue Reason Plan Provider Cycles [facility]: (DOCEtaxel / CARBOplatin / Trastuzumab / Pertuzumab) 21 Day Cycles - Breast 05/15/20 23 11/06/2023 CARBOplatin (PARAPLATIN) IVPB in 250 mLdexAMETHasone (DECADRON)DOCEtax el (TAXOTERE) IVPB in 250 mL (vial 20mg/mL)pertuzuma b (PERJETA) IVPBtrastuzumab-a nns (KANJINTI) IVPBtrastuzumab-d kst (OGIVRI) IVPB Therapy Complete Re Echols MD 8 of 8 cycles started Radiation Treatments * Course [id number]/25/2023 - 01/15/2024 Treatment Period Energy Fraction Dose Fractions Total Dose Plans Planned R CW AND LNS 12/25/2023 - 01/15/2024 340 16 / 5,440 Reference Points Delivered [id number] 12/25/2023 - 01/15/2024 5,440 Lifetime Dose Tracking * Chemical Lifetime Dose Automatic Entry Manual Entr y Fluoro Time 0.3 minutes 0.3 minutes 0 minutes Air kerma at the reference point (Ka,r) 2 mGy 2 mGy 0 mGy
[2025-04-07 08:38] LABS: Hematocrit 36.1 % (35.0-42.0); Hemoglobin 11.8 g/dL (11.7-13.8); Immature Platelet Fraction Pct 1.4 % (1.0-7.0); Mean Corpuscular HGB Conc 32.7 g/dL (32-36); Mean Corpuscular Hemoglobin 29.2 pg (27.0-31.0); Mean Corpuscular Volume 89.4 fL (78.0-102.0); Platelet Count Result 129 K/mm3 (150-420); Red Blood Count 4.04 M/mm3 (4.20-5.40); White Blood Count 4.2 K/mm3 (4.8-10.8)
[2025-04-07 09:12] LABS: Iron 79 ug/dL (37-170)
[2025-04-07 09:18] LABS: Alanine Aminotransferase 31 U/L (6-35); Albumin Level 4.4 g/dL (3.5-5.1); Alkaline Phosphatase 173 U/L (38-126); Anion Gap 9 mmol/L (4-12); Aspartate Amino Transferase 45 U/L (14-36); Bilirubin,Total 0.8 mg/dL (0.2-1.3); Blood Urea Nitrogen 13 mg/dL (7-17); Calcium 9.7 mg/dL (8.4-10.2); Carbon Dioxide 26 mmol/L (22-30); Chloride 106 mmol/L (98-107); Estimated Glomerular Filt Rate > 60; Glucose 104 mg/dL (65-110); Osmolality Calculated 292 mOsm/kg (285-295); Potassium 4.0 mmol/L (3.4-5.0); Sodium 141 mmol/L (137-145); Total Protein 7.1 g/dL (6.3-8.2)
[2025-04-07 09:23] LABS: Percent Iron Saturation 19 % (20-50)
[2025-04-07 09:27] LABS: NT Pro B Type Natriuretic Pept 148 pg/mL (19.9-100)
[2025-04-07 09:53] LABS: Ferritin 30.20 ng/mL (11.1-264)
[2025-04-07 10:30] LABS: GGT 182.0 U/L (12-43)
[2025-04-08 08:09] LABS: Hep B Core Ab, Total Negative (Negative)
[2025-04-08 12:08] LABS: Immunoglobulin A, Qn 139 mg/dL (87-352); Immunoglobulin G, Qn 1178 mg/dL (586-1602); Immunoglobulin M, Qn 76 mg/dL (26-217)
[2025-04-13 13:08] LABS: ANA by IFA Rfx Titer/Pattern Negative (.)
== END 2025-04-07 08:11 | disposition home or self-care (01) ==
LOC: CHSLAB 08:15
PROVIDERS: PCP Physician Assistant; Visit Provider Internal Medicine Gastroenterology
DX: K74.69 Other cirrhosis of liver (principal); Z11.59 Encounter for screening for other viral diseases; R06.89 Other abnormalities of breathing
CPT/HCPCS: 36415; 80053; 82103; 82104; 82248; 82306; 82390; 82728; 82784; 82977; 83540; 83550; 83880; 85027; 85055; 86015; 86038; 86231; 86364; 86704; 86706; 86803; 87340